=== PATIENT | male | born 1970 | race Caucasian/White ===

== ENCOUNTER 2019-06-13 13:50 | Emergency (ER) | payer OTHER ==
[~2019-06-13] VITALS: Ht 177.8 cm; Wt 120.2 kg
[~2019-06-13 13:50] MED LIST: CLONAZEPAM1 MG PO; HYDROCHLOROTH12.5 M1 PO; KETOROLAC30 MG/1 M1 IJ; LEVOTHYROXINE75 MCG PO; LOPRESSOR50 MG PO; NEURONTIN600 MG PO; NORCO 10-325 T1 EACH PO; TEGRETOL200 MG PO; ULTRAM50 MG PO
[2019-06-13] MEDS ORDERED: COREG CR10 MG PO (14:23)
[2019-06-13] MEDS ORDERED: CELEBREX50 MG PO (14:23)
[2019-06-13] MEDS ORDERED: NORVASC5 MG PO (14:23)
== END 2019-06-13 15:43 | disposition home or self-care (01) ==
LOC: ED 13:50
DX: R10.9 Unspecified abdominal pain (principal); I10 Essential (primary) hypertension; E03.9 Hypothyroidism, unspecified; Z88.2 Allergy status to sulfonamides; Z79.899 Other long term (current) drug therapy; Z79.891 Long term (current) use of opiate analgesic
CPT/HCPCS: 74176; 81001; 96372; 99284-25; J1885

== ENCOUNTER 2021-09-20 17:57 | Emergency (ER) | payer OTHER ==
[~2021-09-20] VITALS: Ht 177.8 cm; Wt 120.2 kg
[~2021-09-20 17:57] MED LIST changes: +CELEBREX50 MG PO; +COREG CR10 MG PO; +NORVASC5 MG PO
== END 2021-09-20 20:54 | disposition home or self-care (01) ==
LOC: ED 17:57
DX: S50.11XA Contusion of right forearm, initial encounter (principal); I10 Essential (primary) hypertension; E03.9 Hypothyroidism, unspecified; Z79.899 Other long term (current) drug therapy; W19.XXXA Unspecified fall, initial encounter
CPT/HCPCS: 73090; A9270